=== PATIENT | female | born 1980 | race Caucasian/White ===

== ENCOUNTER 2024-08-05 20:58 | Inpatient (IN) | payer OTHER, SELFPAY ==
[2024-08-05 20:59] VITALS: BP 133/84; PULSE 95; RESP 18; TEMP 36.6; O2SAT 100; BMI 23.6
--- NOTE | 2024-08-05 21:30 | EKG12_ITS ---
Test Reason : dysrhythmia Blood Pressure : */* mmHG Vent. Rate : 72 BPM Atrial Rate : 72 BPM P-R Int : 172 ms QRS Dur : 72 ms QT Int : 388 ms P-R-T Axes : 72 66 60 degrees QTcB Int : 424 ms Normal sinus rhythm Normal ECG Confirmed by MANI MCDERMOTT, SHYAM ([id number]), editorial clerk BRY RODRIGUEZ ([id number]) on 08/08/2024 5:58:24 AM Referred By: Confirmed By: SHYAM SINGLETON MD
--- NOTE | 2024-08-05 21:31 | EDS_ITS ---
HPI History of Present Illness Chief Complaint: Weakness Informant: patient Narrative Narrative: Patient is a 43-year-old female denies any significant past medical history presenting with right-sided chest discomfort and weakness of her arms. Patient states he felt fine today and came in the house after picking up regular sized sticks from the yard. She does not feel that was particularly exertional activity. She then had a tingling sensation of the right side of her chest and states her arms felt weak and like jelly. She states this occurred around 6 PM and lasted for 10 to 15 minutes and then went away. She then had the pain return which is what prompted her to come to the emergency room. She states is currently subsiding. She did have some associated nausea while driving here. Has never any like this before. Currently denies any chest discomfort. Denies any headache or vision changes. Denies any chest pain or difficulty breathing. Denies any swelling of her legs. Denies any history of DVT or PE. States her father did have heart issues and did have open heart surgery. Does not take any medications besides a B vitamin. No other complaints or concerns reported at this time. States she just went to come in to get checked out to make sure there is nothing serious going on. PFSH PFS Medical History no medical history Home Medications ?Medication ?Instructions ?Recorded ?Last Taken ?Type NK 08/05/24 Unknown History Allergy/AdvReac Type Severity Reaction Status Date / Time No Known Allergies Allergy Verified 08/05/24 21:02 Family History no significant family his Surgical History no surgical history Social History Smoking Status: Never smoker ROS ROS ED Constitutional Constitutional ED: Denies chills, fever(s) or sweats Cardiovascular Cardiovascular: Reports chest pain Respiratory/Chest Respiratory/Chest: Denies cough or dyspnea Gastrointestinal Gastrointestinal: Denies abdominal pain, nausea or vomiting Musculoskeletal Musculoskeletal: Reports other Details: Arm weakness ; Denies arthralgias or myalgias Integumentary Denies rash Neurologic Neurologic: Reports weakness; Denies headache(s) or paresthesias Psychiatric Psychiatric: Denies anxiety or depression EXAM Physical Exam Const Vital Signs: 08/05/24 20:59 Temperature 97.8 F Temperature Source Oral Pulse Rate 95 Respiratory Rate 18 Blood Pressure 133/84 H Blood Pressure Mean 100 Pulse Ox 100 Oxygen Delivery Method Room Air Positive well nourished and well developed General Appearance ED: well developed and NAD HEENT Reports moist mucous membranes Neck supple and no JVD Chest Wall inspection of chest normal and palpation of chest normal Resp normal respiratory effort and clear to auscultation bilaterally Cardio regular rate, regular rhythm and no murmurs Cardio Narrative: 2+ radial DP pulses present GI normal to inspection, nondistended, normoactive bowel sounds and non-tender Extremity normal to inspection General Extremety ED: Negative for edema General Extremity: Negative for edema Neuro oriented x3 and no sensory deficits noted Sensorium / Orientation: alert Motor Exam: strength 5/5 throughout; Negative for general weakness Psych mental status grossly normal Skin no rashes or lesions noted and no wounds MDM MDM MDM Narrative Medical decision making narrative: Patient evaluated for intermittent episodes of tingling in the right side of her chest as well as arm weakness. She is neuro vastly intact. Vital signs are normal. Differential includes ACS, arrhythmia, electrolyte derangements and pulmonary emboli as well as thyroid abnormality. She denies any significant chest pain rating to her back and low suspicion for aortic dissection. She has normal neurologic exam and low suspicion for an acute neurologic process. EKG does not show any acute ischemic changes. Vital signs normal. High sensitivity troponin is mildly elevated at 23 and will trend. No comparison available. TSH minimally elevated at 4.360 and I do not think this is significant have to cause symptoms. Her D-dimer is normal. No electrolyte derangement presents. CBC largely normal. Patient be signed out to oncoming physician pending repeat troponin and for final disposition. Anticipate that if troponin is stable and she remains asymptomatic and we discharged home. Radiography Chest X-Ray - ED: 2 View, Read by ED Physician, Read by Radiologist and No Acute Disease Rhythm Strip Rhythm Strip: Sinus Rhythm Rate: 72 Ectopy: None EKG Initial EKG: Attestation: I personally reviewed and interpreted this EKG as follows: Interpretation: Sinus Rhythm Comments: Normal sinus rhythm rate of 72 bpm Normal axis Normal intervals Normal ST segments No prior EKG available for comparison Discharge Plan Triage Chief Complaint: Weakness ED Provider: Liz Ruiz Dx/Rx/DC Orders Clinical Impression: Chest discomfort, Bilateral arm weakness Prescriptions: No Action NK Primary Care Provider: Conrado Carias Referrals: Conrado Carias MD [Primary Care Provider] - Print Language: Lithuanian
[2024-08-05 21:37] VITALS: BP 115/65; PULSE 84; RESP 17; O2SAT 99
[2024-08-05] MEDS: Aspirin 81 MG TAB.CHEW 324 MG PO (21:37)
--- NOTE | 2024-08-05 21:39 | RAD_ITS ---
PROCEDURE: CHEST PA AND LATERAL 08/05/2024 REASON FOR EXAM: CHEST PAIN TECHNIQUE: Frontal and lateral views of the chest. COMPARISON: None FINDINGS: Cardiomediastinal silhouette is within normal limits. Lungs are clear. No sizable pneumothorax. RAD/Chest PA and Lateral IMPRESSION: No acute airspace abnormality. Reading Location: [facility]
[2024-08-05 21:45] LABS: Absolute Lymphocyte Count 1.46 X10^3/uL (0.83-4.51); Absolute Neutrophil Count 3.9 X10^3/uL (2.0-7.7); Basophil# 0.02 X10^3/uL; Basophil% 0.3 % (0-1); Eosinophil# 0.05 X10^3/uL; Eosinophils% 0.8 % (0-5); Hematocrit 35.9 % (37-47); Hemoglobin 12.1 g/dL (12.0-15.0); Lymphocyte # 1.46 X10^3/ul (0.83-4.51); Lymphocyte % 23.7 % (19-41); Mean Corp Hgb Conc 33.7 g/dL (32-36); Mean Corpuscular Hgb 30.6 pg (27.0-32.0); Mean Corpuscular Volume 90.9 fL (81-99); Mean Platelet Vol. 9.6 fl (6.2-12.0); Monocyte# 0.68 X10^3/uL; Monocyte% 11.1 % (0-10); NRBC Flagged by Analyzer 0 % (0-5); Neutrophil # 3.91 X10^3/uL (2.7-7.7); Neutrophil % 63.6 % (47-70); Platelet Count 238 K/mm3 (150-450); RBC Distribution Width CV 11.9 % (11.6-14.6); RBC Distribution Width SD 39.8 fl (35.1-43.9); Red Blood Count 3.95 M/mm3 (4.2-5.4); White Blood Count 6.2 K/mm3 (4.4-11.0)
[2024-08-05 22:04] LABS: D-Dimer Quantitative (DVT/PE) 0.27 FEU/ug/m (0.27-0.49)
[2024-08-05 22:13] LABS: Anion Gap 9 (5-15); BUN 8 mg/dL (4-19); BUN/Creat Ratio 13.5 RATIO (10-20); Calcium,Total 8.5 mg/dL (7.6-11.0); Carbon Dioxide 21.9 mmol/L (21.0-32.0); Chloride 106 mmol/L (98-108); Creatinine, Serum 0.56 mg/dL (0.70-1.20); EST Glomerular Filtration Rate 115 (>60); Estimated Creatinine Clearance 120.01 ml/min (50-250); Glucose 107 mg/dL (70-99); Magnesium 1.9 mg/dL (1.5-2.2); Potassium 3.9 mmol/L (3.3-5.1); Sodium Level 138 mmol/L (133-145); Troponin T High Sensitivity 23 ng/L (<=14)
[2024-08-05 22:14] VITALS: BP 105/76; PULSE 78; RESP 18; O2SAT 98
[2024-08-06] VITALS (8 sets, daily range): BP systolic 102–111; BP diastolic 68–76; PULSE 64–90; RESP 14–18; TEMP 36.6–37.2; O2SAT 98–100; BMI 23.2
[2024-08-06 00:03] LABS: Troponin T High Sens 2 HR 48 ng/L (<=14)
--- NOTE | 2024-08-06 00:30 | HP.PCM.HOS_ITS ---
HPI - General General Date of Admission: 08/06/24 Date of Service: 08/06/24 Chief Complaint: Chest pain HPI Narrative The patient is a 43 y/o F w/ no marked PMHx, no on any medications who presents to the [facility] ED on 08/06/24 with history of onset of right-sided chest discomfort described as a tightness coming on when she is with picking up regular sized not heavy sticks in the yard with paresthesias and heaviness to her upper bilateral extremities as well as transient mild lightheadedness, minimal dyspnea, nausea without emesis which quickly abated after 10 minutes occurring initially at potentially 4-5 pm in the afternoon not returning however later in the evening just prior to decision for ET arrival she had been walking upstairs and had it recur prompting eventual ED evaluation to be safe. Upon ED evaluation she does report that the chest tightness when it was occurring was rated approximately 8 out of 10 in severity. She denies any discomfort, tightness, paresthesias, lightheadedness, nausea at this time. She states she is often very active and has never had any issues prior. Workup in the ED included T 97.8, heart rate 95, BP 133/84, respiratory rate 18, 100% on room air with most recent repeat vitals T97.8, heart rate 78, BP 105/76, respiratory rate 18, 98% on room air, CBC with WBC 6.2, he 1 12.1, platelet 230 without marked shift, D-dimer 0.27, BMP with glucose 107 otherwise not marked appearing, magnesium 1.9, initial troponin 23 with repeat delta 48, TSH 4.360, chest x-ray with no acute cardiopulmonary findings, EKG with sinus rhythm with no acute evidence of ischemia. In the ED patient ministered full-strength aspirin therapy. [facility] Medical History (Updated 08/06/24 @ 00:[address] Sadie Streeter MD) No significant past medical history Medical History no medical history Home Medications ?Medication ?Instructions ?Recorded ?Last Taken ?Type NK 08/05/24 Unknown History Allergy/AdvReac Type Severity Reaction Status Date / Time No Known Allergies Allergy Verified 08/05/24 21:02 Family History (Updated 08/06/24 @ 00:[address] Sadie Streeter MD) Mother Diabetes Father Hypertension Heart disease CAD (coronary artery disease) Family History no significant family his Surgical History (Updated 08/06/24 @ 00:[address] Sadie Streeter MD) No history of previous surgery Surgical History no surgical history Social History (Updated 08/06/24 @ 00:[address] Sadie Streeter MD) household members: spouse and family Smoking Status: Never smoker alcohol intake: never substance use type: does not use ROS ROS Narrative Admission Review of Systems: CONSTITUTIONAL: No weight loss, fever, chills, + weakness or fatigue. HEENT: + Transient lightheadedness. Eyes: No visual loss, blurred vision, double vision or yellow sclerae. Ears, Nose, Throat: No hearing loss, sneezing, congestion, runny nose or sore throat. SKIN: No rash or itching, lesions, wounds. CARDIOVASCULAR: + Chest tightness, transient lightheadedness. No palpitations, edema, orthopnea, syncopal events. RESPIRATORY: + Very minimal dyspnea. No cough or sputum, wheezing, hemoptysis. GASTROINTESTINAL: + Transient nausea. No anorexia, vomiting or diarrhea, abdominal pain, melena, BRBPR. GENITOURINARY: No dysuria, frequency, urgency or retention. NEUROLOGICAL:+ Transient lightheadedness. No headache, syncope, paralysis, ataxia, numbness or tingling in the extremities, focal weakness, change in bowel or bladder control, seizure. MUSCULOSKELETAL: No muscle, back pain, joint pain or stiffness. HEMATOLOGIC: No anemia, bleeding or bruising. LYMPHATICS: No enlarged nodes. No history of splenectomy. PSYCHIATRIC: No history of depression or anxiety. ENDOCRINOLOGIC: + sweating. No cold or heat intolerance. No polyuria or polydipsia. ALLERGIES: No history of asthma, hives, eczema or rhinitis. Vital Signs Vital Signs Vital Signs: 08/05/24 20:59 08/05/24 21:37 08/05/24 22:14 Temperature 97.8 F Temperature Source Oral Pulse Rate 95 84 78 Respiratory Rate 18 17 18 Blood Pressure 133/84 H 115/65 105/76 Blood Pressure Mean 100 81 85 Pulse Ox 100 99 98 Oxygen Delivery Method Room Air Room Air Room Air 08/06/24 00:22 Temperature 97.8 F Temperature Source Pulse Rate 78 Respiratory Rate 18 Blood Pressure 105/76 Blood Pressure Mean 85 Pulse Ox 98 Oxygen Delivery Method Weight Weight: 146 lb 3 oz Body Mass Index (BMI) 23.6 Physical Exam Narrative Physical Examination: General: Awake, alert, oriented x 3 and cooperative, seated upright in the ED bed in no apparent distress, no current chest discomfort. Skin: Normal color, normal turgor, no icterus, no cyanosis. HEENT: AT/NC, EOMI, PERRLA, MMM, no carotid bruits or JVD noted. Lungs: CTA bilaterally, moderate effort, mild decrease BL bases, no appreciated rales, ronchi or wheezing. Heart: Regular rate and rhythm; no gallop, rub audible, no reproducible discomfort. Abdomen: Soft, NTTP, ND, normal BS, no HSM. Extremities: No cyanosis, clubbing, or edema. Neurological: Patient awake, alert, oriented as noted, cognitive function intact; pupils equally reactive to light and accommodation, cranial nerves gross normal, moving all 4 extremities, no focal deficits, strength preserved. Psychiatric: Affect appears fatigued otherwise normal, no acute evidence of depressive or anxiety feelings. Results Lab / Micro Data 08/05/24 21:28 08/05/24 21:28 Labs: Laboratory Results - last 24 hr 08/05/24 21:28: WBC 6.2, RBC 3.95 L, Hgb 12.1, Hct 35.9 L, MCV 90.9, MCH 30.6, MCHC 33.7, RDW Std Deviation 39.8, RDW Coeff of Candida 11.9, Plt Count 238, MPV 9.6, Immature Gran % (Auto) 0.500, Neut % (Auto) 63.6, Lymph % (Auto) 23.7, [place] % (Auto) 11.1 H, Eos % (Auto) 0.8, Baso % (Auto) 0.3, Absolute Neuts (auto) 3.9, Absolute Lymphs (auto) 1.46, Nucleated RBC % 0, D-Dimer Quant (PE/DVT) 0.27, Sodium 138, Potassium 3.9, Chloride 106, Carbon Dioxide 21.9, Anion Gap 9, BUN 8, Creatinine 0.56 L, Estim Creat Clear Calc 120.01, Est GFR (MDRD) Non-Af 115, BUN/Creatinine Ratio 13.5, Glucose 107 H, Calcium 8.5, Magnesium 1.9, Troponin T High Sens 23 H, TSH 4.360 H 08/05/24 23:18: Troponin T Hi Sens 2 Hr 48 H Rhythm Strip Rhythm Strip: Sinus Rhythm Rate: 72 Ectopy: None Imaging Radiology Impression Chest X-Ray 08/05/24 21:39 IMPRESSION: No acute airspace abnormality. Reading Location: [facility] Assessment & Plan Assessment/Plan (1) Chest discomfort: PLAN: Plan The patient is a 43 y/o F w/ no marked PMHx, no on any medications who presents to the [facility] ED on 08/06/24 with history of onset of right-sided chest discomfort described as a tightness coming on when she is with picking up regular sized not heavy sticks with bilateral upper extremity heaviness, lightheadedness, mild nausea and very mild dyspnea which resolved after 10 minutes with recurrent event later in the day. #1. Chest Pain: EKG in ED with sinus rhythm with no acute evidence of ischemia, CXR w/ no acute cardiopulmonary finding, initial trop 23 with repeat delta 48. Will admit to PCU, place on a monitored bed to assure no acute myocardial infarction with serial cardiac enzymes and EKGs. If repeat EKGs without significant change and enzymes do not significantly rise would plan to pursue a.m. cardiac stress testing. If enzymes rise notably or there are EKG changes then cardiology would be consulted. Will maintain on baby aspirin. FLP in AM. #2. Abnormal TSH: Admission TSH mildly elevated 4.360, will obtain free T4. #3. DVT prophylaxis: Lovenox. Charges/Coding Visit Charges Inpatient E&M: 82900 Init Hosp L2
--- NOTE | 2024-08-06 00:34 | EKG12_ITS ---
Test Reason : CP Blood Pressure : */* mmHG Vent. Rate : 78 BPM Atrial Rate : 78 BPM P-R Int : 172 ms QRS Dur : 84 ms QT Int : 394 ms P-R-T Axes : 78 78 59 degrees QTcB Int : 449 ms Normal sinus rhythm Normal ECG When compared with ECG of 05-Aug-2024 22:05, MANUAL COMPARISON REQUIRED DATA IS UNCONFIRMED Confirmed by HOLLIS MCDERMOTT, RORY ([id number]), design editor ODILIA EMANUEL ([id number]) on 08/08/2024 9:18:09 AM Referred By: Confirmed By: RORY SHAFER MD
[2024-08-06] MEDS: 0.9% Normal Saline (1000mL) 1,000 ML 100 ML IV (01:20)
[2024-08-06 02:19] LABS: Phosphorus 2.6 mg/dL (2.7-4.5)
[2024-08-06 03:16] LABS: Absolute Lymphocyte Count 1.61 X10^3/uL (0.83-4.51); Absolute Neutrophil Count 3.4 X10^3/uL (2.0-7.7); Basophil# 0.03 X10^3/uL; Basophil% 0.5 % (0-1); Eosinophil# 0.04 X10^3/uL; Eosinophils% 0.7 % (0-5); Hematocrit 36.2 % (37-47); Hemoglobin 12.2 g/dL (12.0-15.0); Lymphocyte # 1.61 X10^3/ul (0.83-4.51); Lymphocyte % 27.3 % (19-41); Mean Corp Hgb Conc 33.7 g/dL (32-36); Mean Corpuscular Hgb 30.4 pg (27.0-32.0); Mean Corpuscular Volume 90.3 fL (81-99); Mean Platelet Vol. 9.6 fl (6.2-12.0); Monocyte# 0.77 X10^3/uL; Monocyte% 13.1 % (0-10); NRBC Flagged by Analyzer 0 % (0-5); Neutrophil # 3.43 X10^3/uL (2.7-7.7); Neutrophil % 58.2 % (47-70); Platelet Count 224 K/mm3 (150-450); RBC Distribution Width SD 39.6 fl (35.1-43.9); Red Blood Count 4.01 M/mm3 (4.2-5.4); White Blood Count 5.9 K/mm3 (4.4-11.0)
[2024-08-06 03:54] LABS: Troponin T High Sens 4 HR 58 ng/L (<=14)
[2024-08-06] MEDS: Aspirin E.C. 81 MG Tablet PO (05:02)
[2024-08-06 05:10] LABS: ALB/GLOB Ratio 1.6 RATIO (0.9-2.4); AST(SGOT) 22 U/L (<=31); Alanine Aminotransfer ALT/SGPT 19 U/L (<=34); Albumin, Serum 3.9 g/dL (3.5-5.0); Alkaline Phosphatase 62 U/L (35-104); Anion Gap 11 (5-15); BUN 6 mg/dL (4-19); BUN/Creat Ratio 11.9 RATIO (10-20); Calcium,Total 8.4 mg/dL (7.6-11.0); Carbon Dioxide 19.2 mmol/L (21.0-32.0); Chloride 109 mmol/L (98-108); Creatinine, Serum 0.54 mg/dL (0.70-1.20); EST Glomerular Filtration Rate 116 (>60); Estimated Creatinine Clearance 124.46 ml/min (50-250); Globulin 2.4 g/dL (2.2-4.2); Glucose 108 mg/dL (70-99); Potassium 3.8 mmol/L (3.3-5.1); Protein, Total 6.2 g/dL (5.9-8.4); Sodium Level 138 mmol/L (133-145); Total Bilirubin 0.33 mg/dL (0.00-1.30)
[2024-08-06 07:17] LABS: Cholesterol 167 mg/dL (<=200); High Density Lipoprotein 47 mg/dL; Low Density Lipoprotein Calc. 108 mg/dL; Triglycerides 60 mg/dL; Very Low Density Lipoprotein 12 mg/dL (5-40); cholesterol:hdl ratio screen 3.54
--- NOTE | 2024-08-06 13:20 | STRESSREP_ITS ---
Stress Test Report Date: 08/06/2024 Procedure: Pharmacologic stress nuclear imaging study Indications: Chest pain Consent: Per the patient Procedure: The patient underwent pharmacologic (Regadenoson) evaluation with a peak heart rate of 126 beats per minute (71%predicted maximal heart rate) and a peak blood pressure of 118/70 mmHg. The baseline ECG demonstrated normal sinus rhythm. EKG during lexiscan infusion revealed sinus tachycardia with about half a millimeter horizontal ST depression in the inferior and lateral leads. EKG post infusion revealed return of ST segments towards baseline [There were no cardiac dysrhythmias pretest, during pharmacologic infusion, or recovery]. [There was no complaint of chest discomfort during pharmacologic infusion or recovery]. The examination was discontinued secondary to completion of protocol. Impression: 1. Lexiscan stress test test is negative for Lexiscan infusion induced EKG changes of ischemia. 2. Lexiscan stress test test is negative for Lexiscan infusion induced chest pain. 3. Results of the nuclear portion of the test is as below Myocardial perfusion imaging study: Technique: The patient was injected with 11.6 millicuries of technetium 99m Cardiolite and subsequently rest SPECT Cardiolite nuclear imaging was obtained in the horizontal long, vertical long, and short axis views. The patient underwent pharmacologic [Regadenoson 0.4mg] evaluation. Please see above for details. The patient was injected with 35.8 millicuries of technetium 99m Cardiolite and subsequently stress SPECT Cardiolite nuclear imaging was obtained in the horizontal long, vertical long, and short axis views. A gated Cardiolite study at peak stress was obtained. Interpretation: Rest and stress SPECT Cardiolite nuclear imaging status post realignment, normalization, and attenuation correction demonstrate normal uptake at rest. On the stress images there is extracardiac uptake adjacent to the myocardium that makes the myocardial uptake uninterpretable. The reported LVEF is 59%. Impression: 1. Nuclear images are suboptimal for evaluation of ischemia due to extracardiac uptake. This note was generated with [employer] software. It may contain incorrect words, spelling, and punctuation that were not noted in checking the note before signing.
--- NOTE | 2024-08-06 14:33 | PN.HOSP_ITS ---
Reason for Visit Reason for Visit: Diagnoses Other chest pain (08/06/24) Objective Data Objective Data Vital Signs: Vital Signs Temp Pulse Resp BP Pulse Ox O2 Del Method 97.9 F 64 18 103/69 100 Room Air 08/06/24 08:04 08/06/24 08:05 08/06/24 08:04 08/06/24 08:04 08/06/24 08:04 08/06/24 08:04 Oxygen Delivery Method Room Air Weight: 144 lb 2.917 oz Body Mass Index (BMI) 23.2 Intake & Output: Intake and Output for Last 24 Hours 08/04/24 08/05/24 08/06/24 23:59 23:59 23:59 Intake Total 1000.00 / 1000.00 Balance 1000.00 / 1000.00 Lab / Micro Data 08/06/24 02:44 08/06/24 02:44 Labs: Laboratory Results - last 24 hr 08/05/24 21:28: WBC 6.2, RBC 3.95 L, Hgb 12.1, Hct 35.9 L, MCV 90.9, MCH 30.6, MCHC 33.7, RDW Std Deviation 39.8, RDW Coeff of Candida 11.9, Plt Count 238, MPV 9.6, Immature Gran % (Auto) 0.500, Neut % (Auto) 63.6, Lymph % (Auto) 23.7, [place] % (Auto) 11.1 H, Eos % (Auto) 0.8, Baso % (Auto) 0.3, Absolute Neuts (auto) 3.9, Absolute Lymphs (auto) 1.46, Nucleated RBC % 0, D-Dimer Quant (PE/DVT) 0.27, Sodium 138, Potassium 3.9, Chloride 106, Carbon Dioxide 21.9, Anion Gap 9, BUN 8, Creatinine 0.56 L, Estim Creat Clear Calc 120.01, Est GFR (MDRD) Non-Af 115, BUN/Creatinine Ratio 13.5, Glucose 107 H, Calcium 8.5, Magnesium 1.9, Troponin T High Sens 23 H, TSH 4.360 H 08/05/24 23:18: Phosphorus 2.6 L, Troponin T Hi Sens 2 Hr 48 H 08/06/24 02:44: WBC 5.9, RBC 4.01 L, Hgb 12.2, Hct 36.2 L, MCV 90.3, MCH 30.4, MCHC 33.7, RDW Std Deviation 39.6, RDW Coeff of Candida 12.0, Plt Count 224, MPV 9.6, Immature Gran % (Auto) 0.200, Neut % (Auto) 58.2, Lymph % (Auto) 27.3, [place] % (Auto) 13.1 H, Eos % (Auto) 0.7, Baso % (Auto) 0.5, Absolute Neuts (auto) 3.4, Absolute Lymphs (auto) 1.61, Nucleated RBC % 0, Sodium 138, Potassium 3.8, Chloride 109 H, Carbon Dioxide 19.2 L, Anion Gap 11, BUN 6, Creatinine 0.54 L, Estim Creat Clear Calc 124.46, Est GFR (MDRD) Non-Af 116, BUN/Creatinine Ratio 11.9, Glucose 108 H, Calcium 8.4, Total Bilirubin 0.33, AST 22, ALT 19, Alkaline Phosphatase 62, Troponin T Hi Sens 4Hr 58 H*, Total Protein 6.2, Albumin 3.9, Globulin 2.4, Albumin/Globulin Ratio 1.6, Triglycerides 60, Cholesterol 167, LDL Cholesterol, Calc 108, VLDL Cholesterol 12, HDL Cholesterol 47, Cholesterol/HDL Ratio 3.54, Free T4 1.00 Radiography Diagnostic Testing: Radiology Impression Chest X-Ray 08/05/24 21:39 IMPRESSION: No acute airspace abnormality. Reading Location: [facility] Rhythm Strip Rhythm Strip: Sinus Rhythm Rate: 72 Ectopy: None Physical Exam Narrative Seen and examined Patient complain of right-sided chest discomfort about 6 PM after returning from building in the car but it was not exertional. She also had shortness of breath. She did have chest pain that is tightness/discomfort with radiation to both arms but denies diaphoresis, palpitation or near syncope. Again she had similar chest discomfort at 9 PM when she was at rest. Denies previous episodes of angina or CAD. Her father had cardiac surgery, aortic valve replacement but probably no CABG Physical exam: General: Alert, Oriented x3, Cooperative, BMI normal 23.3 cubic risk-management HEENT: Atraumatic, PERRLA, EOMI, Normocephalic Oral: No Gingival or Mucosal Lesions/ Ulcerations Neck: Supple, No JVD, Negative Carotid Bruits Chest wall/Lungs: Air entry equal in bilateral lung bases. No crepitation/rhonchi Cardiovascular: Regular rate, Regular Rhythm, Normal S1, Normal S2, No M/G/R Abdomen: Bowel Sounds Present, Soft, Non Tender, Non-Distended : No dysuria. No renal angle tenderness. No suprapubic tenderness. Extremities: No edema, Capillary Refill Less than 3 Seconds Skin: No rashes, No breakdown Musculoskeletal: No Tenderness to Palpation of Joints or Extremities Neurological: Cranial nerves II-XII grossly intact, DTR 2+/4. No acute focal neurological deficit. Psych/Mental Status: Normal Affect, Appropriate. Assessment & Plan Assessment/Plan (1) Chest discomfort: PLAN: Plan The patient is a 43 y/o F was admitted for first-time 2 episodes of tightness/discomfort over the right chest with radiation to both arms with no prior history of CAD. #1. Atypical chest pain with suspicion of unstable angina/ACS: Patient is being admitted in PCU. Twelve-lead EKG shows sinus rhythm with no acute evidence of ST deviation. Chest x-ray normal. Isoject troponins reported 23, 48 and 58. Discussed with the major assembly inspector and Lexiscan stress test was done. Nuclear images are suboptimal for evaluation of ischemia due to extracardiac uptake therefore recommended cardiac cath on Thursday. Continue baby aspirin. Fasting profile LDL 108, HDL 47 in normal limit. #2. Abnormal TSH: Admission TSH mildly elevated 4.360, free T41.0 Normal. I do not think patient has any thyroid disorder. #3. DVT prophylaxis: Lovenox. Laboratory Results 08/05/24 21:28: WBC 6.2, RBC 3.95 L, Hgb 12.1, Hct 35.9 L, MCV 90.9, MCH 30.6, MCHC 33.7, RDW Std Deviation 39.8, RDW Coeff of Candida 11.9, Plt Count 238, MPV 9.6, Immature Gran % (Auto) 0.500, Neut % (Auto) 63.6, Lymph % (Auto) 23.7, [place] % (Auto) 11.1 H, Eos % (Auto) 0.8, Baso % (Auto) 0.3, Absolute Neuts (auto) 3.9, Absolute Lymphs (auto) 1.46, Nucleated RBC % 0, D-Dimer Quant (PE/DVT) 0.27, Sodium 138, Potassium 3.9, Chloride 106, Carbon Dioxide 21.9, Anion Gap 9, BUN 8, Creatinine 0.56 L, Estim Creat Clear Calc 120.01, Est GFR (MDRD) Non-Af 115, BUN/Creatinine Ratio 13.5, Glucose 107 H, Calcium 8.5, Magnesium 1.9, Troponin T High Sens 23 H, TSH 4.360 H 08/05/24 23:18: Phosphorus 2.6 L, Troponin T Hi Sens 2 Hr 48 H 08/06/24 02:44: WBC 5.9, RBC 4.01 L, Hgb 12.2, Hct 36.2 L, MCV 90.3, MCH 30.4, MCHC 33.7, RDW Std Deviation 39.6, RDW Coeff of Candida 12.0, Plt Count 224, MPV 9.6, Immature Gran % (Auto) 0.200, Neut % (Auto) 58.2, Lymph % (Auto) 27.3, [place] % (Auto) 13.1 H, Eos % (Auto) 0.7, Baso % (Auto) 0.5, Absolute Neuts (auto) 3.4, Absolute Lymphs (auto) 1.61, Nucleated RBC % 0, Sodium 138, Potassium 3.8, C hloride 109 H, Carbon Dioxide 19.2 L, Anion Gap 11, BUN 6, Creatinine 0.54 L, Estim Creat Clear Calc 124.46, Est GFR (MDRD) Non-Af 116, BUN/Creatinine Ratio 11.9, Glucose 108 H, Calcium 8.4, Total Bilirubin 0.33, AST 22, ALT 19, Alkaline Phosphatase 62, Troponin T Hi Sens 4Hr 58 H*, Total Protein 6.2, Albumin 3.9, Globulin 2.4, Albumin/Globulin Ratio 1.6, Triglycerides 60, Cholesterol 167, LDL Cholesterol, Calc 108, VLDL Cholesterol 12, HDL Cholesterol 47, Cholesterol/HDL Ratio 3.54, Free T4 1.00 Charges/Coding Visit Charges Inpatient E&M: 05273 Subs Hosp L2
--- NOTE | 2024-08-06 14:58 | CON.PCM.CA_ITS ---
Assessment & Plan Assessment/Plan (1) Elevated troponin: (2) Chest discomfort: PLAN: Plan No chest pain and elevated troponin for a suspicion of the pain being of cardiac origin. I think it is reasonable to proceed with coronary angiography. Explained the procedure, risks and benefits to the patient and her in detail. Patient states that she wants to think about this option. I would also recommend checking a 2D echo. Agree with aspirin. Reasonable to start the patient on therapeutic Lovenox. Hold Thursday morning dose in anticipation of heart cath if patient is agreeable. HPI Consult Data Date of Consult: 08/06/24 HPI Narrative Reason for Consultation: Chest pain, elevated troponin HPI Narrative: MONTSERRAT GUADARRAMA, is a 43 F who presents with chest pain that was like a tightness sensation to the right of her sternum with radiation to the right arm. This initially happened when she was doing some light work. It lasted about 10 to 15 minutes. She came to the hospital and she had an episode here as well that lasted about half an hour. Patient's troponin went up slightly. She had a stress test today which showed some slight ST changes which did not meet criteria for ischemia. Nuclear images were suboptimal for evaluation of ischemia. Review of systems: All systems reviewed. ROS is negative except as in HPI [facility] Medical History (Updated 08/06/24 @ 00:[address] Sadie Streeter MD) No significant past medical history Medical History no medical history Home Medications ?Medication ?Instructions ?Recorded ?Last Taken ?Type NK 08/05/24 Unknown History Allergy/AdvReac Type Severity Reaction Status Date / Time No Known Allergies Allergy Verified 08/05/24 21:02 Family History (Updated 08/06/24 @ 00:[address] Sadie Streeter MD) Mother Diabetes Father Hypertension Heart disease CAD (coronary artery disease) Family History no significant family his Surgical History (Updated 08/06/24 @ 00:[address] Sadie Streeter MD) No history of previous surgery Surgical History no surgical history Social History (Updated 08/06/24 @ 00:[address] Sadie Streeter MD) household members: spouse and family Smoking Status: Never smoker alcohol intake: never substance use type: does not use Physical Exam Const alert HEENT normocephalic Eyes no scleral icterus Resp normal respiratory effort Extremity no pedal edema Risk Stratification Risk Stratification Applicable: No Charges/Coding Visit Charges Inpatient E&M: 29649 Init Hosp L2 Objective Data Vital Signs: Vital Signs Temp Pulse Resp BP Pulse Ox O2 Del Method 97.9 F 64 18 103/69 100 Room Air 08/06/24 08:04 08/06/24 08:05 08/06/24 08:04 08/06/24 08:04 08/06/24 08:04 08/06/24 08:04 Oxygen Delivery Method Room Air Weight: 144 lb 2.917 oz Body Mass Index (BMI) 23.2 Intake & Output: Intake and Output for Last 24 Hours 08/04/24 08/05/24 08/06/24 23:59 23:59 23:59 Intake Total 1000.00 / 1000.00 Balance 1000.00 / 1000.00 Lab / Micro Data 08/06/24 02:44 08/06/24 02:44 Labs: Laboratory Results - last 24 hr 08/05/24 21:28: WBC 6.2, RBC 3.95 L, Hgb 12.1, Hct 35.9 L, MCV 90.9, MCH 30.6, MCHC 33.7, RDW Std Deviation 39.8, RDW Coeff of Candida 11.9, Plt Count 238, MPV 9.6, Immature Gran % (Auto) 0.500, Neut % (Auto) 63.6, Lymph % (Auto) 23.7, [place] % (Auto) 11.1 H, Eos % (Auto) 0.8, Baso % (Auto) 0.3, Absolute Neuts (auto) 3.9, Absolute Lymphs (auto) 1.46, Nucleated RBC % 0, D-Dimer Quant (PE/DVT) 0.27, Sodium 138, Potassium 3.9, Chloride 106, Carbon Dioxide 21.9, Anion Gap 9, BUN 8, Creatinine 0.56 L, Estim Creat Clear Calc 120.01, Est GFR (MDRD) Non-Af 115, BUN/Creatinine Ratio 13.5, Glucose 107 H, Calcium 8.5, Magnesium 1.9, Troponin T High Sens 23 H, TSH 4.360 H 08/05/24 23:18: Phosphorus 2.6 L, Troponin T Hi Sens 2 Hr 48 H 08/06/24 02:44: WBC 5.9, RBC 4.01 L, Hgb 12.2, Hct 36.2 L, MCV 90.3, MCH 30.4, MCHC 33.7, RDW Std Deviation 39.6, RDW Coeff of [place] 12.0, Plt Count 224, MPV 9.6, Immature Gran % (Auto) 0.200, Neut % (Auto) 58.2, Lymph % (Auto) 27.3, [place] % (Auto) 13.1 H, Eos % (Auto) 0.7, Baso % (Auto) 0.5, Absolute Neuts (auto) 3.4, Absolute Lymphs (auto) 1.61, Nucleated RBC % 0, Sodium 138, Potassium 3.8, C hloride 109 H, Carbon Dioxide 19.2 L, Anion Gap 11, BUN 6, Creatinine 0.54 L, Estim Creat Clear Calc 124.46, Est GFR (MDRD) Non-Af 116, BUN/Creatinine Ratio 11.9, Glucose 108 H, Calcium 8.4, Total Bilirubin 0.33, AST 22, ALT 19, Alkaline Phosphatase 62, Troponin T Hi Sens 4Hr 58 H*, Total Protein 6.2, Albumin 3.9, Globulin 2.4, Albumin/Globulin Ratio 1.6, Triglycerides 60, Cholesterol 167, LDL Cholesterol, Calc 108, VLDL Cholesterol 12, HDL Cholesterol 47, Cholesterol/HDL Ratio 3.54, Free T4 1.00 Rhythm Strip Rhythm Strip: Sinus Rhythm Rate: 72 Ectopy: None Cardiology Labs/Tests 08/05/24 21:28: WBC 6.2, RBC 3.95 L, Hgb 12.1, Hct 35.9 L, MCV 90.9, MCH 30.6, MCHC 33.7, Plt Count 238, MPV 9.6, Immature Gran % (Auto) 0.500, Neut % (Auto) 63.6, Lymph % (Auto) 23.7, [place] % (Auto) 11.1 H, Eos % (Auto) 0.8, Baso % (Auto) 0.3, Absolute Neuts (auto) 3.9, Nucleated RBC % 0, D-Dimer Quant (PE/DVT) 0.27, Sodium 138, Potassium 3.9, Chloride 106, Carbon Dioxide 21.9, Anion Gap 9, BUN 8, Creatinine 0.56 L, Est GFR (MDRD) Non-Af 115, BUN/Creatinine Ratio 13.5, G lucose 107 H, Calcium 8.5, Magnesium 1.9 08/05/24 23:18: Phosphorus 2.6 L 08/06/24 02:44: WBC 5.9, RBC 4.01 L, Hgb 12.2, Hct 36.2 L, MCV 90.3, MCH 30.4, MCHC 33.7, Plt Count 224, MPV 9.6, Immature Gran % (Auto) 0.200, Neut % (Auto) 58.2, Lymph % (Auto) 27.3, Centre % (Auto) 13.1 H, Eos % (Auto) 0.7, Baso % (Auto) 0.5, Absolute Neuts (auto) 3.4, Nucleated RBC % 0, Sodium 138, Potassium 3.8, C hloride 109 H, Carbon Dioxide 19.2 L, Anion Gap 11, BUN 6, Creatinine 0.54 L, Est GFR (MDRD) Non-Af 116, BUN/Creatinine Ratio 11.9, Glucose 108 H, Calcium 8.4, Total Bilirubin 0.33, Triglycerides 60, Cholesterol 167, VLDL Cholesterol 12, HDL Cholesterol 47, Cholesterol/HDL Ratio 3.54 Rhythm: EKG: ECHO: Stress Test: Cardiac Cath: PCI: CT Surgery: Holter monitor: EPS: PPM: CXR: Chest CT Scan: Radiography Diagnostic Testing: Radiology Impression Chest X-Ray 08/05/24 21:39 IMPRESSION: No acute airspace abnormality. [facility]
[2024-08-07 03:30] VITALS: BP 99/65; PULSE 81; RESP 18; TEMP 36.9; O2SAT 99
[2024-08-07 07:41] VITALS: O2SAT 97
[2024-08-07] MEDS: Aspirin E.C. 81 MG Tablet PO (08:31)
[2024-08-07] MEDS: Enoxaparin 40 MG/0.4 ML Syringe SC (08:31)
[2024-08-07 08:44] VITALS: BP 108/73; PULSE 83; RESP 14; TEMP 36.8; O2SAT 99
--- NOTE | 2024-08-07 14:35 | PCM.PN.HOSP ---
Reason for Visit Reason for Visit: Diagnoses Other chest pain (08/06/24) Other specified abnormal findings of blood chemistry (08/06/24) Objective Data Objective Data Vital Signs: Vital Signs Temp Pulse Resp BP Pulse Ox O2 Del Method 98.2 F 83 14 108/73 99 Room Air 08/07/24 08:44 08/07/24 08:44 08/07/24 08:44 08/07/24 08:44 08/07/24 08:44 08/07/24 08:44 Oxygen Delivery Method Room Air Weight: 144 lb 2.917 oz Body Mass Index (BMI) 23.2 Intake & Output: Intake and Output for Last 24 Hours 08/05/24 08/06/24 08/07/24 23:59 23:59 23:59 Intake Total 1220.00 / 1220.00 0 / 0 Balance 1220.00 / 1220.00 0 / 0 Lab / Micro Data 08/06/24 02:44 08/06/24 02:44 Rhythm Strip Rhythm Strip: Sinus Rhythm Rate: 72 Ectopy: None Physical Exam Narrative Seen and examined No acute issues yesterday. Plan for cardiac cath tomorrow Physical exam: General: Alert, Oriented x3, Cooperative, BMI normal 23.3 KG per square meter HEENT: Atraumatic, PERRLA, EOMI, Normocephalic Oral: No Gingival or Mucosal Lesions/ Ulcerations Neck: Supple, No JVD, Negative Carotid Bruits Chest wall/Lungs: Air entry equal in bilateral lung bases. No crepitation/rhonchi Cardiovascular: Regular rate, Regular Rhythm, Normal S1, Normal S2, No M/G/R Abdomen: Bowel Sounds Present, Soft, Non Tender, Non-Distended : No dysuria. No renal angle tenderness. No suprapubic tenderness. Extremities: No edema, Capillary Refill Less than 3 Seconds Skin: No rashes, No breakdown Musculoskeletal: No Tenderness to Palpation of Joints or Extremities Neurological: Cranial nerves II-XII grossly intact, DTR 2+/4. No acute focal neurological deficit. Psych/Mental Status: Normal Affect, Appropriate. Assessment & Plan Assessment/Plan (1) Chest discomfort: PLAN: Plan The patient is a 43 y/o F was admitted for first-time 2 episodes of tightness/discomfort over the right chest with radiation to both arms with no prior history of CAD. Denies previous episodes of angina or CAD. Her father had cardiac surgery, aortic valve replacement but probably no CABG #1. Atypical chest pain with suspicion of unstable angina/ACS: Patient is being admitted in PCU. Twelve-lead EKG shows sinus rhythm with no acute evidence of ST deviation. Chest x-ray normal. Isoject troponins reported 23, 48 and 58. Discussed with the financial management consultant and Lexiscan stress test was done. Nuclear images are suboptimal for evaluation of ischemia due to extracardiac uptake therefore recommended cardiac cath on Thursday. Continue baby aspirin. Fasting profile LDL 108, HDL 47 in normal limit. 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 No acute issues. Plan for cardiac catheter tomorrow. #2. Abnormal TSH: Admission TSH mildly elevated 4.360, free T41.0 Normal. I do not think patient has any thyroid disorder. #3. DVT prophylaxis: Lovenox. Laboratory Results 08/05/24 21:28: WBC 6.2, RBC 3.95 L, Hgb 12.1, Hct 35.9 L, MCV 90.9, MCH 30.6, MCHC 33.7, RDW Std Deviation 39.8, RDW Coeff of Candida 11.9, Plt Count 238, MPV 9.6, Immature Gran % (Auto) 0.500, Neut % (Auto) 63.6, Lymph % (Auto) 23.7, [place] % (Auto) 11.1 H, Eos % (Auto) 0.8, Baso % (Auto) 0.3, Absolute Neuts (auto) 3.9, Absolute Lymphs (auto) 1.46, Nucleated RBC % 0, D-Dimer Quant (PE/DVT) 0.27, Sodium 138, Potassium 3.9, Chloride 106, Carbon Dioxide 21.9, Anion Gap 9, BUN 8, Creatinine 0.56 L, Estim Creat Clear Calc 120.01, Est GFR (MDRD) Non-Af 115, BUN/Creatinine Ratio 13.5, Glucose 107 H, Calcium 8.5, Magnesium 1.9, Troponin T High Sens 23 H, TSH 4.360 H 08/05/24 23:18: Phosphorus 2.6 L, Troponin T Hi Sens 2 Hr 48 H 08/06/24 02:44: WBC 5.9, RBC 4.01 L, Hgb 12.2, Hct 36.2 L, MCV 90.3, MCH 30.4, MCHC 33.7, RDW Std Deviation 39.6, RDW Coeff of Candida 12.0, Plt Count 224, MPV 9.6, Immature Gran % (Auto) 0.200, Neut % (Auto) 58.2, Lymph % (Auto) 27.3, [place] % (Auto) 13.1 H, Eos % (Auto) 0.7, Baso % (Auto) 0.5, Absolute Neuts (auto) 3.4, Absolute Lymphs (auto) 1.61, Nucleated RBC % 0, Sodium 138, Potassium 3.8, Chloride 109 H, Carbon Dioxide 19.2 L, Anion Gap 11, BUN 6, Creatinine 0.54 L, Estim Creat Clear Calc 124.46, Est GFR (MDRD) Non-Af 116, BUN/Creatinine Ratio 11.9, Glucose 108 H, Calcium 8.4, Total Bilirubin 0.33, AST 22, ALT 19, Alkaline Phosphatase 62, Troponin T Hi Sens 4Hr 58 H*, Total Protein 6.2, Albumin 3.9, Globulin 2.4, Albumin/Globulin Ratio 1.6, Triglycerides 60, Cholesterol 167, LDL Cholesterol, Calc 108, VLDL Cholesterol 12, HDL Cholesterol 47, Cholesterol/HDL Ratio 3.54, Free T4 1.00 Charges/Coding Visit Charges Inpatient E&M: 44487 Subs Hosp L2
[2024-08-07 14:45] VITALS: BP 108/74; PULSE 94; RESP 14; TEMP 36.3; O2SAT 98
[2024-08-07] MEDS: Enoxaparin 30 MG/0.3 ML Syringe SC (16:45)
[2024-08-07 20:45] VITALS: BP 96/72; PULSE 85; RESP 18; TEMP 36.9; O2SAT 100
[2024-08-08] VITALS (16 sets, daily range): BP systolic 95–107; BP diastolic 53–77; PULSE 67–86; RESP 16–18; TEMP 36.7; O2SAT 96–100
--- NOTE | 2024-08-08 05:55 | EKG12_ITS ---
Test Reason : AM EKG Blood Pressure : */* mmHG Vent. Rate : 68 BPM Atrial Rate : 68 BPM P-R Int : 168 ms QRS Dur : 78 ms QT Int : 418 ms P-R-T Axes : 68 75 57 degrees QTcB Int : 444 ms Normal sinus rhythm with sinus arrhythmia Normal ECG When compared with ECG of 06-Aug-2024 01:09, MANUAL COMPARISON REQUIRED DATA IS UNCONFIRMED Confirmed by HOLLIS MCDERMOTT, RORY ([id number]), associate entertainment editor ODILIA EMANUEL ([id number]) on 08/08/2024 9:17:36 AM Referred By: Confirmed By: RORY SHAFER MD
--- NOTE | 2024-08-08 05:55 | ECHOD_ITS ---
Reason For Study Reason For Study: NSTEMI Procedure This was a 2D Doppler, Color Flow transthoracic echocardiogram. Exam performed portable in patient room. Left Ventricle Normal LV size. Left ventricular systolic function is normal. The left ventricular ejection fraction is 60 %. No regional wall motion abnormalities noted. Right Ventricle Normal RV size. Normal systolic function. Atria Normal left atrium. Normal right atrium. Mitral Valve Normal mitral valve. Tricuspid Valve Normal tricuspid valve. Mild (1+) tricuspid valve insufficiency. Pulmonary artery systolic pressure is 24 mmHg. Aortic Valve Trisinus/trileaflet aortic valve. Pulmonic Valve Normal pulmonic valve. Great Vessels Normal aortic root. The pulmonary artery is normal size. Normal inferior vena cava. Pericardium/Pleural No pericardial effusion. MMode/2D Measurements & Calculations LVIDd: 4.2 cm IVSd: 0.76 cm Ao root diam: 3.2 cm LVIDs: 2.9 cm LVPWd: 0.88 cm RVDd: 3.3 cm FS: 31.2 % LAV(MOD-bp): 21.4 ml LVAd ap4: 26.1 cm2 SV(MOD-sp4): 40.0 ml LAV(MOD-bp) Indexed: 12.3 ml/m2 LVLd ap4: 8.3 cm SI(MOD-sp4): 23.0 ml/m2 LAV(MOD-sp2): 21.4 ml EDV(MOD-sp4): 67.6 ml LAV(MOD-sp4): 20.6 ml EDV(sp4-el): 69.4 ml LVAs ap4: 14.7 cm2 LVLs ap4: 7.1 cm ESV(MOD-sp4): 27.5 ml ESV(sp4-el): 26.1 ml EF(MOD-sp4): 59.2 % EF(sp4-el): 62.4 % SV(sp4-el): 43.3 ml LA A4 area: 10.5 cm2 LA dimension(2D): 2.6 cm RA A4 area: 12.1 cm2 TAPSE: 2.3 cm Time Measurements MV dec time: 0.15 sec Doppler Measurements & Calculations MV E max truman: 44.7 cm/sec Lat Peak E' Truman: 12.3 cm/sec Med Peak E' Truman: 10.7 cm/sec MV A max truman: 46.9 cm/sec E/E' lat: 3.6 E/E' med: 4.2 MV E/A: 0.95 Ao V2 max: 81.5 cm/sec LV V1 max: 76.4 cm/sec PA V2 max: 100.3 cm/sec Ao max P.7 mmHg LV V1 max P.3 mmHg TR max truman: 224.7 cm/sec TR max P.2 mmHg ECHO/Echo Complete Interpretation Summary Normal LV size. Left ventricular systolic function is normal. The left ventricular ejection fraction is 60 %. Pulmonary artery systolic pressure is 24 mmHg. Ordering Physician: Morgan Quintero Referring Physician: REBEKA HERNANDEZ Performed By: Mary Yousif RDCS
[2024-08-08] MEDS: Aspirin E.C. 81 MG Tablet PO (06:25)
[2024-08-08 06:54] LABS: Absolute Lymphocyte Count 1.84 X10^3/uL (0.83-4.51); Absolute Neutrophil Count 2.7 X10^3/uL (2.0-7.7); Basophil# 0.03 X10^3/uL; Basophil% 0.5 % (0-1); Eosinophils% 1.8 % (0-5); Hematocrit 41.7 % (37-47); Hemoglobin 14.2 g/dL (12.0-15.0); Lymphocyte # 1.84 X10^3/ul (0.83-4.51); Lymphocyte % 33.1 % (19-41); Mean Corp Hgb Conc 34.1 g/dL (32-36); Mean Corpuscular Hgb 30.9 pg (27.0-32.0); Mean Corpuscular Volume 90.8 fL (81-99); Mean Platelet Vol. 9.9 fl (6.2-12.0); Monocyte# 0.89 X10^3/uL; NRBC Flagged by Analyzer 0 % (0-5); Neutrophil # 2.68 X10^3/uL (2.7-7.7); Neutrophil % 48.2 % (47-70); Platelet Count 272 K/mm3 (150-450); RBC Distribution Width CV 12.1 % (11.6-14.6); RBC Distribution Width SD 40.2 fl (35.1-43.9); Red Blood Count 4.59 M/mm3 (4.2-5.4); White Blood Count 5.6 K/mm3 (4.4-11.0)
[2024-08-08 07:23] LABS: Anion Gap 10 (5-15); BUN 11 mg/dL (4-19); Calcium,Total 8.6 mg/dL (7.6-11.0); Carbon Dioxide 20.5 mmol/L (21.0-32.0); Chloride 106 mmol/L (98-108); Creatinine, Serum 0.67 mg/dL (0.70-1.20); EST Glomerular Filtration Rate 110 (>60); Estimated Creatinine Clearance 100.31 ml/min (50-250); Glucose 98 mg/dL (70-99); Potassium 4.1 mmol/L (3.3-5.1); Sodium Level 136 mmol/L (133-145)
[2024-08-08 09:08] LABS: Internal QC Validated? YES +Cl - CLEAR BKGD; Pregnancy, Urine Negative Negative
--- NOTE | 2024-08-08 09:41 | CL.D_ITS ---
Patient Name: MONTSERRAT GUADARRAMA Study Date: 08/08/2024 Performing: Brenden Leija MD Ht: 66 inches 167.64 cm : 1980 Wt: 144.18 lbs 65.4 kg Age: 43 Gender: female BSA: 1.74 PROCEDURE(S) PERFORMED DC01-(12541)LHC/COR/LV CLINICAL PROFILE AND INDICATIONS Indications: Suspected CAD Heart Failure: None Stress/Imaging Date: 08/06/24Stress Test with SPECT MPI: Positive Intermediate Risk CAD Presentations: No Sxs, no angina. CONCLUSIONS Normal coronary arteries Normal LV size, wall motion,and systolic function Hyperdynamic RECOMMENDATIONS Medical therapy DESCRIPTION OF PROCEDURE The patient arrived to the procedure lab. The risks and benefits of the procedure as well as a full description of our services here and current unavailability of surgical backup were fully explained to the patient and/or their significant other prior to the catheterization. The Timeout was completed, verifying the correct patient and procedure. The patient's procedural site was prepped and draped in the usual fashion. Local anesthetic was given subcutaneously to right radial region with Lidocaine 2%. Using a modified Seldinger technique, arterial access was obtained via the right radial artery, a 6Fr sheath was inserted. Left Coronary Artery selective angiography was performed in multiple views using a 5 Fr. 4.0 [place] catheter. Right Coronary Artery selective angiography was then performed in multiple views using a 5 Fr. 4.0 [place] catheter. Left Ventriculography was performed in DON projection using a 5 Fr. Pigtail catheter. LV to AO pullback pressures were then recorded.The arterial sheath was pulled and a TR Band was applied for hemostasis. 10cc air CORONARY ANGIOGRAPHY DOMINANCE: Right Dominant LEFT HEART ASSESSMENT Left Ventricular Ejection Fraction: by LV Gram 70 % Normal LV wall motion Normal Left Ventricular systolic function Normal Left Ventricular systolic function LEFT MAIN: Angiographically normal LEFT ANTERIOR DESCENDING ARTERY: Angiographically normal CIRCUMFLEX ARTERY: Angiographically normal RIGHT CORONARY ARTERY: Angiographically normal COMPLICATIONS No Complications PROCEDURE MEDICATIONS Fentanyl 50 mcg IV Versed 1 mg IV Oxygen: 2 L/min via nasal cannula Heparin given IA 08/08/2024 09:21:17 Metoprolol 5 mg 08/08/2024 09:32:35 Verapamil 2.5mg, Ntg 100mcgs, 3000 units of Heparin given IA 08/08/2024 09:21:17 SUMMARY OF HEMODYNAMIC DATA Time AIR REST ECG 08:57:48 AO 115/86 (100) SA 09:22:31 LV 126/9, 19 09:28:12 LV 119/9, 21 09:28:17 LV 131/14, 16 09:29:18 LVp 133/13, 21 09:29:22 AOp 157/105 (130) 09:29:27 Signed By Brenden Leija MD On 08/08/2024 09:41:23 Brenden Leija MD
--- NOTE | 2024-08-08 09:42 | PN.CARD_ITS ---
Subjective Subjective Patient seen and evaluated. Appears to be stable at this time. Underwent cardiac catheterization today Objective Data Vital Signs: Vital Signs Temp Pulse Resp BP Pulse Ox O2 Del Method 98.0 F 75 16 107/70 99 Room Air 08/08/24 07:40 08/08/24 07:40 08/08/24 07:40 08/08/24 07:40 08/08/24 07:40 08/08/24 07:49 Oxygen Delivery Method Room Air Weight: 144 lb 2.917 oz Body Mass Index (BMI) 23.2 Intake & Output: Intake and Output for Last 24 Hours 08/06/24 08/07/24 08/08/24 23:59 23:59 23:59 Intake Total 1220.00 / 1220.00 0 / 120 120 / 120 Balance 1220.00 / 1220.00 0 / 120 120 / 120 Lab / Micro Data 08/08/24 05:27 08/08/24 05:27 Labs: Laboratory Results - last 24 hr 08/08/24 05:27: WBC 5.6, RBC 4.59, Hgb 14.2, Hct 41.7, MCV 90.8, MCH 30.9, MCHC 34.1, RDW Std Deviation 40.2, RDW Coeff of Candida 12.1, Plt Count 272, MPV 9.9, Immature Gran % (Auto) 0.400, Neut % (Auto) 48.2, Lymph % (Auto) 33.1, [place] % (Auto) 16.0 H, Eos % (Auto) 1.8, Baso % (Auto) 0.5, Absolute Neuts (auto) 2.7, Absolute Lymphs (auto) 1.84, Nucleated RBC % 0, Sodium 136, Potassium 4.1, Chloride 106, Carbon Dioxide 20.5 L, Anion Gap 10, BUN 11, Creatinine 0.67 L, Estim Creat Clear Calc 100.31, Est GFR (MDRD) Non-Af 110, BUN/Creatinine Ratio 16.0, Glucose 98, Calcium 8.6 08/08/24 08:28: Urine Test Negative Rhythm Strip Rhythm Strip: Sinus Rhythm Rate: 72 Ectopy: None Cardiology Labs/Tests 08/08/24 05:27: WBC 5.6, RBC 4.59, Hgb 14.2, Hct 41.7, MCV 90.8, MCH 30.9, MCHC 34.1, Plt Count 272, MPV 9.9, Immature Gran % (Auto) 0.400, Neut % (Auto) 48.2, Lymph % (Auto) 33.1, [place] % (Auto) 16.0 H, Eos % (Auto) 1.8, Baso % (Auto) 0.5, Absolute Neuts (auto) 2.7, Nucleated RBC % 0, Sodium 136, Potassium 4.1, Chloride 106, Carbon Dioxide 20.5 L, Anion Gap 10, BUN 11, Creatinine 0.67 L, Est GFR (MDRD) Non-Af 110, BUN/Creatinine Ratio 16.0, Glucose 98, Calcium 8.6 Rhythm: EKG: ECHO: Stress Test: Cardiac Cath: PCI: CT Surgery: Holter monitor: EPS: PPM: CXR: Chest CT Scan: Physical Exam Const alert, oriented x3 and no apparent distress General Appearance: cooperative HEENT hearing grossly normal bilaterally Head and Scalp: atraumatic Eyes EOMs intact bilaterally Neck General: normal visual inspection Chest inspection of chest normal and palpation of chest normal Resp normal respiratory effort Auscultation: clear to auscultation bilaterally Cardio regular rate, regular rhythm, S1 normal heart sound and S2 normal heart sound Jugular Venous Distention: JVD GI normal to inspection, nondistended, normoactive bowel sounds Extremity normal capillary refill and no pedal edema Peripheral Pulses: Yes pulses 2+ throughout and femoral pulses present Skin no rashes or lesions noted Neuro oriented x3 and CN's II-XII intact bilaterally Psych Appearance: grossly normal and appropriate Assessment & Plan Assessment/Plan (1) Elevated troponin: PLAN: Cardiac catheterization performed today demonstrated normal coronary arteries with a hyperdynamic ventricle. My recommendations at this time would be to manage her with medication. Will start Toprol-XL 25 mg daily. I will review the echocardiogram and can be followed up as an outpatient. Thank you for allowing me to participate in the care of your patient. Please don't hesitate to call if any issues arise.
--- NOTE | 2024-08-08 09:50 | PN.HOSP_ITS ---
Reason for Visit Reason for Visit: Diagnoses Other chest pain (08/06/24) Other specified abnormal findings of blood chemistry (08/06/24) Subjective Subjective Short of breath post cath and was to focus on her breathing. Feeling better now. Objective Data Objective Data Vital Signs: Vital Signs Temp Pulse Resp BP Pulse Ox O2 Del Method 36.7 C 75 16 107/70 99 Room Air 08/08/24 07:40 08/08/24 07:40 08/08/24 07:40 08/08/24 07:40 08/08/24 07:40 08/08/24 07:49 Oxygen Delivery Method Room Air Weight: 65.4 kg Body Mass Index (BMI) 23.2 Intake & Output: Intake and Output for Last 24 Hours 08/06/24 08/07/24 08/08/24 23:59 23:59 23:59 Intake Total 1220.00 / 1220.00 0 / 120 120 / 120 Balance 1220.00 / 1220.00 0 / 120 120 / 120 Lab / Micro Data 08/08/24 05:27 08/08/24 05:27 Labs: Laboratory Results - last 24 hr 08/08/24 05:27: WBC 5.6, RBC 4.59, Hgb 14.2, Hct 41.7, MCV 90.8, MCH 30.9, MCHC 34.1, RDW Std Deviation 40.2, RDW Coeff of Candida 12.1, Plt Count 272, MPV 9.9, Immature Gran % (Auto) 0.400, Neut % (Auto) 48.2, Lymph % (Auto) 33.1, [place] % (Auto) 16.0 H, Eos % (Auto) 1.8, Baso % (Auto) 0.5, Absolute Neuts (auto) 2.7, Absolute Lymphs (auto) 1.84, Nucleated RBC % 0, Sodium 136, Potassium 4.1, Chloride 106, Carbon Dioxide 20.5 L, Anion Gap 10, BUN 11, Creatinine 0.67 L, Estim Creat Clear Calc 100.31, Est GFR (MDRD) Non-Af 110, BUN/Creatinine Ratio 16.0, Glucose 98, Calcium 8.6 08/08/24 08:28: Urine Test Negative Rhythm Strip Rhythm Strip: Sinus Rhythm Rate: 72 Ectopy: None Physical Exam Const alert and no apparent distress HEENT head/scalp atraumatic and moist oral mucous membranes Resp normal respiratory effort and no retractions Cardio regular rate, regular rhythm, S1 normal heart sound and S2 normal heart sound Extremity Extremity Narrative: radial compression strap in place. normal cap refil. Assessment & Plan Assessment/Plan (1) Chest pain: PLAN: suboptimal stress test on 08/06. Catheterization showed angiographically normal coronaries. started by cardiology on metoprolol succinate 25/d (2) Elevated troponin I level: PLAN: Non-cardiac. Etiology unclear. D-dimer WNL, therefore CTA not indicated
--- NOTE | 2024-08-08 10:10 | CASEMGMT ---
RN CM Face to Face with patient for initial transition planning/care coordination assessment. RN CM introduced self and role at [facility]. Patient lying in bed, alert and oriented, family at bedside. Patient willing to participate in assessment and is able to answer all questions appropriately. Care providers, pharmacy, and demographics verified. Strata: 2 PCP: Aretha Specialists: none Preferred Pharmacy: [facility]; [facility] retail at discharge. Insurance: AA Prescription Benefit: none Living Will/HPOA: yes, LNOK: , daughter Living Arrangements: Patient lives with family in a 2 story home with bed and bath on first floor. Patient is independent at home. Transportation: Driving Service DME/HHC: Patient denies DME in home. No previous HHC or SNF. Patient wishes to discharge home, denies need for home health at this time. Patient states she has no further needs or concerns at this time. CM to follow for discharge planning needs that may arise. Disposition Plan: Patient to discharge home with family support and follow-up plans in place. Brittney BOWMAN, RN, CM
--- NOTE | 2024-08-08 11:06 | DS.PCM_ITS ---
Providers Date of Admission: 08/06/24 Primary Care Physician: Dr. Conrado Carias MD Consultations 08/06/24 14:33 Consult: Cardiology Routine Consulting Provider: Radames Soni Reason for Consult: possible unstable angina/ACS EMERGENT Consult: No MD Notified: Yes Date Notified: 08/06/24 Time Notified: 12:33 Method of Notification: Verbal Reason For Visit: CHEST PAIN Diagnosis Discharge Diagnosis (1) Chest pain: Status: Acute Code(s): R07.9 - Chest pain, unspecified Plan: suboptimal stress test on 08/06. Catheterization showed angiographically normal coronaries. started by cardiology on metoprolol succinate 25/d (2) Elevated troponin I level: Status: Acute Code(s): R79.89 - Other specified abnormal findings of blood chemistry Plan: Non-cardiac. Etiology unclear. D-dimer WNL, therefore CTA not indicated Medications at Discharge Home Medications NK 08/05/24 metoprolol succinate 25 mg tablet,extended release 24 hr 25 mg PO DAILY #30 tabs 08/08/24 Hospital Course Operations None Procedures Cardiac catheterization and Stress test Summary of Care Provided Hospital Course: Patient presents with chest pain. Troponins were minimally elevated. Stress stress was suboptimal due to extracardiac uptake. The patient underwent left heart catheterization that showed normal coronaries today. Patient was tachycardic and she will be started on metoprolol succinate 25 mg daily. Patient is currently feeling fine at this time. Unclear if the patient's chest pain may have been anxiety induced perhaps precipitating her tachycardia. But patient has remained stable otherwise. Weight / BMI Weight Weight: 65.4 kg Body Mass Index (BMI) 23.2 ABG / Lab / Microbiology Data 08/08/24 05:27 08/08/24 05:27 Laboratory: Laboratory Results - last 24 hr 08/08/24 05:27: WBC 5.6, RBC 4.59, Hgb 14.2, Hct 41.7, MCV 90.8, MCH 30.9, MCHC 34.1, RDW Std Deviation 40.2, RDW Coeff of Candida 12.1, Plt Count 272, MPV 9.9, Immature Gran % (Auto) 0.400, Neut % (Auto) 48.2, Lymph % (Auto) 33.1, [place] % (Auto) 16.0 H, Eos % (Auto) 1.8, Baso % (Auto) 0.5, Absolute Neuts (auto) 2.7, Absolute Lymphs (auto) 1.84, Nucleated RBC % 0, Sodium 136, Potassium 4.1, Chloride 106, Carbon Dioxide 20.5 L, Anion Gap 10, BUN 11, Creatinine 0.67 L, Estim Creat Clear Calc 100.31, Est GFR (MDRD) Non-Af 110, BUN/Creatinine Ratio 16.0, Glucose 98, Calcium 8.6 08/08/24 08:28: Urine Test Negative D/C Instructions Discharge Diet: No restrictions DC O2, CPAP, BIPAP Needs Home O2 Discharge instructions: No Meaningful Use Info Meaningful Use Meaningful Use Diagnoses (Choose all that apply): None applicable Ischemic Stroke Statin Dosing Therapy Reference: STATIN DOSE THERAPY REFERENCE: * Patients > 75 years receive moderate or high dose statin therapy. * Patients 75 years or YOUNGER should receive HIGH intensity statin dose unless contraindicated. You will be required to document reason for non-treatment if statin daily dose does not meet guidelines. HIGH DOSE STATIN THERAPY DAILY Atorvastatin > than or = to 40 mg Rosuvastatin > than or = to 20 mg Amlodipine + Atorvastatin > than or = to 2.5/40 mg Ezetimibe + Simvastatin 10/80 mg Simvastatin 80mg Discharge Plan Admission Admit Date/Time: 08/06/24 16:13 Primary Reason for Your Visit: Chest pain Attending Provider: Fred Campbell Primary Care Provider: Conrado Carias Consulting Providers: Sadie Streeter; Radames Soni; Morgan Quintero Instructions Additional Instructions / Restrictions: Your cardiac catheterization was normal, showing normal coronary arteries without any evidence of a heart attack. The salvage engineer started you on metoprolol to help with your fast heart rates that you have had while you are in the hospital. Discharge Orders/Prescriptions Prescriptions: New metoprolol succinate 25 mg Tablet Extended Release 24 Hr 25 mg PO DAILY Qty: 30 0RF No Action NK Referrals / Follow Up: Conrado Carias MD [Primary Care Provider] - Within 2 Weeks Disposition Disposition (needs filled in before D/C Order can be placed): Home, Self Care Charges/Coding Visit Charges Inpatient E&M: 44200 Disch Hosp
[2024-08-08] MEDS: Metoprolol(XL)Succ 25 MG Tablet PO (11:33)
--- NOTE | 2024-08-08 13:33 | PHA.DC.MC.R ---
Pharmacy [facility] has performed discharge medication reconciliation and counseling for this patient. 1. METOPROLOL SUCCINATE 25MG PO DAILY The patient's discharge medication list was reviewed for discrepancies and discrepancies were resolved. The patient was counseled on the following discharge medications and changes in medications for homegoing were reviewed. The Reason for Use, instructions for use, and potential side effects were reviewed for all new medications. The patient's questions regarding all of their medications were answered. The patient was able to verbally demonstrate an understanding of their discharge medications. Medications at Discharge Home Medications metoprolol succinate 25 mg tablet,extended release 24 hr 25 mg PO DAILY #30 tabs 08/08/24
== END 2024-08-08 16:25 | disposition home or self-care (01) | DRG 311 ==
LOC: ED 08-06 00:20 → PCU 08-06 01:22
PROVIDERS: Internal Medicine; Internal Medicine Cardiovascular Disease; Admitting Provider Family Medicine; Emergency Provider Emergency Medicine; PCP Family Medicine
DX: I20.0 Unstable angina (principal); R07.89 Other chest pain; R79.89 Other specified abnormal findings of blood chemistry; Z79.899 Other long term (current) drug therapy; R94.6 Abnormal results of thyroid function studies
CPT/HCPCS: 36415; 71046; 78452; 80048; 80053; 80061; 81025; 83735; 84100; 84439; 84443; 84484; 85025; 85379; 93005; 93017; 93306; 93458; 99152; 99153; 99285; A9500; Q9967; A4216; C1769; C1894; J2785